=== PATIENT | male | born 1945 | race Caucasian/White ===

== ENCOUNTER 2018-02-28 17:31 | Emergency (ER) | payer BC ==
[2018-02-28] MEDS ORDERED: Cephalexin 500 MG CAP ONE (17:57)
[2018-02-28] MEDS ORDERED: Bacitracin Zinc 1 Packet ONE (18:37)
== END 2018-02-28 18:43 | disposition home or self-care (01) ==
LOC: BURERS 17:31
DX: S81.012A Laceration without foreign body, left knee, initial encounter (principal); I10 Essential (primary) hypertension; E11.9 Type 2 diabetes mellitus without complications; E03.9 Hypothyroidism, unspecified; E03.8 Other specified hypothyroidism; W29.3XXA Contact with powered garden and outdoor hand tools and machinery, initial encounter
CPT/HCPCS: 12032